=== PATIENT | male | born 1985 | race Caucasian/White ===

== ENCOUNTER 2019-08-31 10:13 | Emergency (ER) | payer OTHER ==
[~2019-08-31] VITALS: Ht 182.9 cm; Wt 88.7 kg
[~2019-08-31 10:13] MED LIST: ACETAMINOPHEN325 M1 PO; IBUPROFEN200 MG PO; MOTRIN IB200 MG PO; NORCO 5-325 TA1 EACH PO
[2019-08-31] MEDS ORDERED: ROBITUSSIN LON118 ML PO (10:43)
[2019-08-31] MEDS ORDERED: PROVENTIL HFA6.7 GM INH (10:43)
== END 2019-08-31 11:44 | disposition home or self-care (01) ==
LOC: ED 10:13
DX: J06.9 Acute upper respiratory infection, unspecified (principal); Z87.891 Personal history of nicotine dependence; Z88.5 Allergy status to narcotic agent
CPT/HCPCS: 99283

== ENCOUNTER 2019-11-01 11:11 | Emergency (ER) | payer OTHER ==
[~2019-11-01] VITALS: Ht 182.9 cm; Wt 90.7 kg
[~2019-11-01 11:11] MED LIST changes: +PROVENTIL HFA6.7 GM INH; +ROBITUSSIN LON118 ML PO
[2019-11-01] MEDS ORDERED: PERCOCET 5-3251 EACH PO (12:18)
[2019-11-01] MEDS ORDERED: MEDROL4 M1 PO (12:18)
== END 2019-11-01 12:53 | disposition home or self-care (01) ==
LOC: ED 11:11
DX: M62.830 Muscle spasm of back (principal); Z88.5 Allergy status to narcotic agent
CPT/HCPCS: 72100; 96372; 99283-25; J1885; J2930

== ENCOUNTER 2020-03-07 17:32 | Emergency (ER) | payer OTHER ==
[~2020-03-07] VITALS: Ht 182.9 cm; Wt 90.7 kg
[~2020-03-07 17:32] MED LIST changes: +MEDROL4 M1 PO; +PERCOCET 5-3251 EACH PO
[2020-03-07] MEDS ORDERED: NAPROSYN500 MG PO (17:42)
[2020-03-07] MEDS ORDERED: KEFLEX500 MG PO (18:29)
== END 2020-03-07 18:37 | disposition home or self-care (01) ==
LOC: ED 17:32
DX: L03.115 Cellulitis of right lower limb (principal); Z88.5 Allergy status to narcotic agent
CPT/HCPCS: 99283; A9270

== ENCOUNTER 2020-06-07 06:55 | Emergency (ER) | payer OTHER ==
[~2020-06-07] VITALS: Ht 182.9 cm; Wt 90.7 kg
[~2020-06-07 06:55] MED LIST changes: +KEFLEX500 MG PO; +NAPROSYN500 MG PO
[2020-06-07] MEDS ORDERED: ONDANSETRON ODT4 MG PO (08:56)
--- NOTE | 2020-06-07 20:08 | PATH ---
[facility] [address] [place], [place] [address] Signed ORDERING PHYSICIAN: Augusto Alonzo MD PATIENT NAME: TIEN MONAE GENDER: Lisandro : 1985 SPECIMEN(S): CLINICAL HISTORY: Routine Pap Smear MOLECULAR PATHOLOGY RESULTS: SARS-CoV-2 Not Detected ADDITIONAL NOTES.: The [place] Fusion SARS-CoV-2 Assay is a multiplex real-time PCR (RT-PCR) in vitro diagnostic test intended for the qualitative detection of RNA from SARS-CoV-2 from individuals who meet COVID-19 clinical and/or epidemiological criteria. In general, SARS-CoV-2 RNA can be detected during the acute phase of infection. Positive results indicate the presence of SARS-CoV-2 RNA. Clinical correlation with patient history and other diagnostic information is necessary to determine patient infection status. Positive results do not rule out bacterial infection or co-infection with other viruses. Negative results do not preclude SARS-CoV-2 infection and should not be used as the sole basis for patient management decisions. Negative results must be combined with other clinical observations, patient history, and epidemiological information. The [place] Fusion SARS-CoV-2 Assay is not yet approved or cleared by the [place] FDA. When there are no FDA-approved or cleared tests available, and other criteria are met, FDA can make tests available under an emergency access mechanism called an Emergency Use Authorization (EUA). The EUA for this test is supported by the Director Mission of Health and Human Service's (HHS's) declaration that circumstances exist to justify the emergency use of in vitro diagnostics for the detection and/or diagnosis of the virus that causes COVID-19. This EUA will remain in effect for the duration of the COVID-19 declaration justifying emergency of IVDs, unless it is terminated or revoked by FDA, after which the test may no longer be used. The [place] Fusion SARS-CoV-2 Assay is for use only under EUA in US laboratories certified under the Clinical Laboratory Improvement PATIENT NAME: TIEN MONAE PATHOLOGY DATE OF : [birth year] REPORT #: [id number] PHYSICIAN: AYSE PATHOLOGY PCP: NO PRIMARY CARE PHYSICIAN REPORT IS CONFIDENTIAL AND NOT TO BE RELEASED WITHOUT AUTHORIZATION [facility] [address] [place] [id number] Signed Amendments of 1988 (CLIA) to perform high complexity tests. [facility] is certified under CLIA to perform high complexity clinical laboratory testing. PERFORMING LABORATORY.: Molecular testing was performed by [facility] [address] [place], [place] [address], [place] [address] (Automotive Worker: Ricardo Gotti D.O.; CLIA#: [id number]) Diagnostician: System Interface Pathologist Electronically Signed 06/07/2020 Copies: ~ PATIENT NAME: TIEN MONAE PATHOLOGY DATE OF : [birth year] REPORT #: [id number] PHYSICIAN: AYSE AYALA PCP: NO PRIMARY CARE PHYSICIAN REPORT IS CONFIDENTIAL AND NOT TO BE RELEASED WITHOUT AUTHORIZATION
== END 2020-06-07 09:05 | disposition home or self-care (01) ==
LOC: ED 06:55
DX: R11.2 Nausea with vomiting, unspecified (principal); R19.7 Diarrhea, unspecified; R82.81 Pyuria; Z87.891 Personal history of nicotine dependence; Z88.5 Allergy status to narcotic agent
CPT/HCPCS: 80053; 81001; 83735; 85025; 87088; 96361; 96374; 99284-25; C9803; J2405; J7030

== ENCOUNTER 2021-12-27 07:56 | Emergency (ER) | payer SELFPAY ==
[~2021-12-27] VITALS: Ht 182.9 cm; Wt 90.7 kg
[~2021-12-27 07:56] MED LIST changes: +ONDANSETRON ODT4 MG PO
== END 2021-12-27 08:36 | disposition home or self-care (01) ==
LOC: ED 07:56
DX: M77.12 Lateral epicondylitis, left elbow (principal); Z87.891 Personal history of nicotine dependence; Z88.5 Allergy status to narcotic agent
CPT/HCPCS: 99283-25